=== PATIENT | female | born 2000 | race Caucasian/White ===

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

== ENCOUNTER 2021-04-01 13:51 | Outpatient (CLI) | payer OTHER ==
[2021-04-01 14:43] VITALS: BP 132/75; PULSE 85; RESP 18; TEMP 97.6
--- NOTE | 2021-04-05 07:26 | P.MSEPDOC ---
Presenting Problems - Arrival Data Date of Arrival on Unit: 04/01/21 Time of Arrival on Unit: 13:51 Mode of Transport: Ambulatory - Complaint OB-Reason for Admission/Chief Complaint: Decreased Movement Medical History - Information : 1 Para: 0 Term: 0 : 0 Abortions: Spontaneous or Elective: 0 Number of Living Children: 0 - Gestational Age Gestational Age by RICO (wks/days): 36 Weeks and 3 Days Review of Systems - Review of Systems Constitutional: No problems Breast: No problems ENT: No problems Cardiovascular: No problems Respiratory: No problems Gastrointestinal: No problems Genitourinary: No problems Musculoskeletal: No problems Neurological: No problems Skin: No problems Vital Signs - Temperature Temperature: 97.6 F Temperature Source: Oral - Pulse Pulse Oximetery Pulse Rate: 85 Pulse Assessment Method: Pulse Oximetry - Respirations Respiratory Rate: 18 Oxygen Delivery Method: Room Air O2 Sat by Pulse Oximetry: 100 - Blood Pressure Right Arm Blood Pressure: 132/75 Blood Pressure Mean: 94 Blood Pressure Source: Automatic Cuff Medical Screen Scoring - Assessment - Baby A Baseline FHR: 135 Heart Rate - NICHD Category: Category I (Normal) NST: Reactive Physician Notification - Physician Notified Physician Notified Date: 04/01/21 Physician Notified Time: 14:27 Physician: Margo Luna New Order Received: Yes - Notification Comment Comment: Dr. Luna called, report given on maternal and status, complaints of. decreased movement x3 days. NST is reactive and pt is feeling movement at this time. Vitals WNL and pt has no other complaints. Orders to discharge pt home. Maternal Triage Index - Maternal Triage Index Presenting for scheduled procedure w/no complaint: No - Stat/Priority 1 Stat Priority 1: No - Urgent/Priority 2 Urgent Priority 2: Yes Provider Notified: Margo Luna Provider Notified Time: 14:27 Criteria Met for Priority 2: 36 3/7 weeks, c/o decreased movement x3days Disposition - Disposition OB Disposition: Discharge to home Discharge Date: 04/01/21 Discharge Time: 14:30 I agree with the RN Medical Screening Exam: Yes Case reviewed; plan agreed upon as documented in EMR&OBIX.: Yes Diagnosis: DECREASED MOVEMENTS, THIRD TRIMESTER, FETUS 1
== END 2021-04-01 14:30 | disposition home or self-care (01) ==
LOC: FBPOP 13:51
PROVIDERS: ATTEND Obstetrics & Gynecology
DX: O36.8130 Decreased fetal movements, third trimester, not applicable or unspecified (principal); Z3A.36 36 weeks gestation of pregnancy
CPT/HCPCS: 59025; G0463; 99213

== ENCOUNTER 2021-04-29 05:55 | Inpatient (IN) | payer OTHER ==
--- NOTE | 2021-04-28 20:32 | P.HPOB ---
History of Present Illness H&P Date: 04/28/21 Chief Complaint: Induction of labor This is a 20 y.o. female, 1, para 0, with an estimated date of confinement of 04/26/2021, estimated gestational age of 40-3/7 weeks, who presents for induction of labor due to postdates. She complains of irregular contractions and pressure. course has been essentially uncomplicated. labs: GC/chlamydia/Trich-neg Hepatitis B surface antigen-neg RPR-NR Rubella-immune Blood type-A neg Antibody screen-neg HIV-NR Hemoglobin-12.4 Toxoplasma-neg Random glucose-83 Quad-neg 1 hr. GTT-118 Rhogam given at 28 weeks GBS-neg OB Hx: Housekeeper Supervisor Hx: No hx STDs Social Hx: Single. Review of Systems Constitutional: Denies chills, Denies fever Eyes: denies blurred vision, denies pain Ears, nose, mouth and throat: Denies headache, Denies sore throat Cardiovascular: Denies chest pain, Denies shortness of breath Respiratory: Denies cough Gastrointestinal: Reports abdominal pain (irregular contractions) Genitourinary: Reports pelvic pain, Reports Musculoskeletal: Reports low back pain Integumentary: Denies pruritus, Denies rash Neurological: Denies numbness, Denies weakness Psychiatric: Denies anxiety, Denies depression Past Medical History Past Medical History: No Reported History History of Any Multi-Drug Resistant Organisms: None Reported Past Surgical History: No Surgical Hx Reported Past Psychological History: No Psychological Hx Reported Smoking Status: Vaper (Prior to preg.) Past Alcohol Use History: None Reported Past Drug Use History: None Reported - Past Family History Brother(s) Family Medical History: Cancer (lymphoma) Medications and Allergies Home Medications Medication Instructions Recorded Confirmed Type Pnv,Calcium 72/Iron/Folic Acid 1 each PO 04/28/21 History [ Plus Tablet] Allergies Allergy/AdvReac Type Severity Reaction Status Date / Time No Known Allergies Allergy Verified 04/01/21 13:56 Exam Osteopathic Statement: *. No significant issues noted on an osteopathic structural exam other than those noted in the History and Physical/Consult. HEENT: within normal limits Heart: regular rate and rhythm Lungs: clear to auscultation bilaterally Abdomen: , non-tender Cervix: 1 cm/70%/-2 heart tones: 150's by doppler Extremities: neg. Salvador's Assessment and Plan (1) 40 weeks gestation of Status: Acute Code(s): Z3A.40 - 40 WEEKS GESTATION OF SNOMED Code(s): 51401803 Plan: Proceed with oxytocin induction of labor. Expectant management. Epidural anesthesia if desired.
[2021-04-29] MEDS ORDERED: LIDOCAINE 1% (10MG/ML) FOR IV START INTRADERMA PRN (05:57)
[2021-04-29] MEDS ORDERED: CARBOPROST TROMETHAMINE 250 MCG/ML 1 ML AMP IM PRN (05:57)
[2021-04-29] MEDS ORDERED: TERBUTALINE 1 MG/ML VIAL SQ PRN (05:57)
[2021-04-29] MEDS ORDERED: OXYTOCIN 10 UNIT/ML 1 ML VIAL IM PRN (05:57)
[2021-04-29] MEDS ORDERED: METHYLERGONOVINE 0.2 MG/ML 1 ML AMP IM PRN (05:57)
[2021-04-29] MEDS ORDERED: LIDOCAINE 1% (PF) 10 MG/ML (30 ML SDV) SQ PRN (05:57)
[2021-04-29] MEDS ORDERED: OXYTOCIN 30 UNITS/500 ML NS 30 UNIT in SALINE 1 500ML.BAG IV SCH ×2 (05:57→22:30)
[2021-04-29] MEDS: LACTATED RINGERS 1,000 ML IV SCH ×2 (06:15→12:57)
[2021-04-29 06:41] LABS: Basophils % (A) 0 %; Eosinophils # (A) 0.1 k/uL (0-0.7); Eosinophils % (A) 1 %; HCT 32.5 % (34.0-46.0); HGB 10.3 gm/dL (11.4-16.0); Hypochromasia Slight; Lymphocytes % (A) 26 %; MCHC 31.7 g/dL (31.0-37.0); MCV 88.4 fL (80.0-100.0); Mean Platelet Volume 12.3; Monocytes # (A) 0.4 k/uL (0-1.0); Monocytes % (A) 6 %; Neutrophils # (A) 4.9 k/uL (1.3-7.7); Neutrophils % (A) 64 %; RBC 3.68 m/uL (3.80-5.40); RDW 14.7 % (11.5-15.5); WBC 7.6 k/uL (4.0-11.0)
[2021-04-29 07:30] LABS: Platelet Count 216 k/uL (150-450)
[2021-04-29 07:31] LABS: Large Platelets Present
[2021-04-29] MEDS ORDERED: BUTORPHANOL 1 MG/ML 1 ML VIAL IV PRN (12:44)
[2021-04-29] MEDS ORDERED: SODIUM CHLORIDE 0.9% 100 ML BAG ONE (14:58)
[2021-04-29] MEDS ORDERED: ROPIVACAINE 5MG/ML 20ML VIAL ONE (14:58)
[2021-04-29] MEDS ORDERED: fentaNYL (PF) 50 MCG/ML 5 ML AMP ONE (14:58)
--- NOTE | 2021-04-29 22:22 | P.PROBDLV ---
Vaginal Delivery Note - . Vaginal Delivery Note: The patient progressed to complete dilation after oxytocin induction of labor and artificial rupture membranes with thin meconium noted. She did receive epidural anesthesia during labor. Once reaching complete dilation, she began pushing. 's head came to a crown. With one further push, the infant's head delivered across the perineum followed by the anterior shoulder. Nose and mouth were bulb suctioned. With one remaining push, the remainder the infant ea sily delivered and was placed on mother's abdomen. Cord was allowed to finish pulsating and then the cord was clamped and cut. was taken to warmer for evaluation. A viable female infant was noted with scores of 9 at 1 minute and 9 at 5 minutes and weight of 7 lbs. 3 oz. Placenta delivered shortly thereafter, intact, with a three-vessel cord. Uterus initially contracted well after oxytocin was given and uterine massage was carried out. There were several gushes of blood clots. A gloved hand was placed within the endometrial cavity and a small amount of membrane was removed along with several clots. Uterus did firm up fairly well after this. Inspection of the perineum revealed a second-degree perineal laceration. This area was anesthetized with 1% lidocaine and then sutured with 3-0 and 2-0 Vicryl suture in the usual multilayer fashion. Estimated blood loss is approximately 300 mL's. Mother and infant are in stable condition.
[2021-04-29] MEDS ORDERED: diphenhydrAMINE 50 MG/ML 1 ML VIAL IVP PRN ×2 (22:25)
[2021-04-29] MEDS ORDERED: BENZOCAINE/MENTHOL SPRAY 1 GM/SPRAY AEROSOL TOPICAL PRN (22:25)
[2021-04-29] MEDS ORDERED: SIMETHICONE 80 MG CHEWABLE PO PRN (22:25)
[2021-04-29] MEDS ORDERED: ZOLPIDEM 5 MG TAB PO PRN (22:25)
[2021-04-29] MEDS ORDERED: diphenhydrAMINE 50 MG CAP PO PRN (22:25)
[2021-04-29] MEDS ORDERED: diphenhydrAMINE 25 MG CAP PO PRN (22:25)
[2021-04-29] MEDS ORDERED: LANOLIN CREAM 5 GM TUBE TOPICAL PRN (22:25)
[2021-04-29] MEDS ORDERED: HYDROCORTISONE 2.5% RECTAL CREAM 30 GM TUBE RECTAL PRN (22:25)
[2021-04-29] MEDS ORDERED: PRENATAL VIT-IRON-FOLIC ACID 1 EACH CAP PO SCH (22:30)
[2021-04-29 22:44] VITALS: RESP 16
[2021-04-29] MEDS: IBUPROFEN 600 MG TAB PO PRN (22:58)
[2021-04-30] MEDS: ACETAMINOPHEN TAB 325 MG TAB PO PRN ×2 (04:21→15:27)
[2021-04-30] MEDS ORDERED: SENNOSIDES-DOCUSATE SODIUM 1 EACH TAB PO SCH (08:00)
[2021-04-30] MEDS: IBUPROFEN 600 MG TAB PO PRN ×2 (08:33→22:36)
[2021-04-30] MEDS ORDERED: Rhogam IMMUNE GLOBULIN 1,500 UNIT/1 ML IM ONE (10:06)
[2021-04-30 10:15] LABS: Basophils % (A) 0 %; Eosinophils % (A) 0 %; HCT 27.2 % (34.0-46.0); HGB 8.9 gm/dL (11.4-16.0); Hypochromasia Slight; Lymphocytes # (A) 1.8 k/uL (1.0-4.8); Lymphocytes % (A) 13 %; MCH 29.1 pg (25.0-35.0); MCHC 32.8 g/dL (31.0-37.0); MCV 88.7 fL (80.0-100.0); Mean Platelet Volume 12.9; Monocytes # (A) 0.7 k/uL (0-1.0); Monocytes % (A) 5 %; Neutrophils # (A) 11.7 k/uL (1.3-7.7); Neutrophils % (A) 81 %; Platelet Count 206 k/uL (150-450); RBC 3.06 m/uL (3.80-5.40); RDW 14.8 % (11.5-15.5); WBC 14.4 k/uL (4.0-11.0)
[2021-04-30 11:25] LABS: Large Platelets Present
--- NOTE | 2021-04-30 13:47 | P.DS ---
Providers Date of admission: 04/29/21 05:55 Expected date of discharge: 04/30/21 Attending physician: Charlene Dalal Primary care physician: Stated None - Discharge Diagnosis(es) (1) 40 weeks gestation of Current Visit: No Status: Acute Hospital Course: This is a 20-year-old female 1 para 0 at 40-3/7 weeks who presented for induction of labor. She underwent oxytocin induction of labor and delivered vaginally a viable female on 04/29/2021 with scores of 9 at 1 minute and 9 at 5 minutes and weight of 7 lbs. 3 oz. Her course has been uncomplicated. She is bottle feeding. Lochia is decreasing. Her pain is well-controlled. Vital signs are stable. Abdomen is soft with fundus firm and nontender. Extremities show negative Homans. Impression is status post vaginal delivery day #1. Plan is to discharge home today. She is given routine instructions. She is advised to follow up in the office in 6 weeks for check. She has a breast pump at home and plans to pump her breast milk and then feed in the bottle. She is instructed to continue taking her vitamins and she should add an iron supplement due to anemia. She is advised to call the office if she has any further questions or concerns prior to her appointment time. Procedures: Oxytocin induction of labor Spontaneous vaginal delivery of a viable female on 04/29/2021 Patient Condition at Discharge: Stable Plan - Discharge Summary New Discharge Prescriptions: No Action Pnv,Calcium 72/Iron/Folic Acid [ Plus Tablet] 1 each PO ONCE Discharge Medication List Pnv,Calcium 72/Iron/Folic Acid [ Plus Tablet] 1 each PO ONCE 04/28/21 [History] Follow up Appointment(s)/Referral(s): Charlene Dalal DO [Doctor of Osteopathic Medicine] - 06/10/21 11:30 am
[2021-04-30 22:22] VITALS: BP 120/74; PULSE 90; TEMP 98.8
== END 2021-04-30 23:20 | disposition home or self-care (01) | DRG 807 ==
LOC: 4FBP 05:55
PROVIDERS: ADMIT Obstetrics & Gynecology; ATTEND Obstetrics & Gynecology
PROC: 10E0XZZ Delivery of Products of Conception, External Approach (ICD-10-PCS; principal; 2021-04-29)
PROC: 0KQM0ZZ Repair Perineum Muscle, Open Approach (ICD-10-PCS; 2021-04-29)
PROC: 10907ZC Drainage of Amniotic Fluid, Therapeutic from Products of Conception, Via Natural or Artificial Opening (ICD-10-PCS; 2021-04-29)
PROC: 3E033VJ Introduction of Other Hormone into Peripheral Vein, Percutaneous Approach (ICD-10-PCS; 2021-04-29)
DX: O48.0 Post-term pregnancy (principal); O70.1 Second degree perineal laceration during delivery; O77.0 Labor and delivery complicated by meconium in amniotic fluid; O90.81 Anemia of the puerperium; Z37.0 Single live birth; D64.9 Anemia, unspecified; Z3A.40 40 weeks gestation of pregnancy
CPT/HCPCS: 85025; 85461; 86850; 86900; 86901

== ENCOUNTER → 2023-02-12 | Outpatient (CLI) | payer OTHER ==
--- NOTE | 2023-02-12 13:15 | US ---
EXAMINATION TYPE: US pelvic complete DATE OF EXAM: 02/12/2023 COMPARISON: 2018 CLINICAL INDICATION: Female, 22 years old with history of N94.10 DYSPAREUNIA; TECHNIQUE: Transabdominal (TA). Transabdominal sonographic images of the pelvis were acquired. Date of LMP: Feb 02, 2023 EXAM MEASUREMENTS: Uterus: 7.7 x 3.5 x 5.3 cm Endometrial Stripe: 0.31 cm Right Ovary: 4.1 x 3.1 x 2.7 cm Left Ovary: 3.3 x 2.3 x 3.3 cm 1. Uterus: Retroverted Appears wnl 2. Endometrium: wnl 3. Right Ovary: Multiple follicles noted 4. Left Ovary: Multiple follicles noted 5. Bilateral Adnexa: wnl 6. Posterior cul-de-sac: wnl IMPRESSION: No significant abnormality appreciated at this time.
== END | disposition home or self-care (01) ==
LOC: RADUSWWP 12:07
PROVIDERS: ATTEND Obstetrics & Gynecology
DX: N94.10 Unspecified dyspareunia (principal); R10.2 Pelvic and perineal pain
CPT/HCPCS: 76856

== ENCOUNTER 2024-04-14 05:48 | Inpatient (IN) | payer OTHER ==
[2024-04-14] MEDS ORDERED: TRANEXAMIC 1,000 MG/100ML-NACL 1,000 MG in EMPTY BAG 1 BAG IV PRN (06:04)
[2024-04-14] MEDS ORDERED: OXYTOCIN 10 UNIT/ML 1 ML VIAL IM PRN (06:04)
[2024-04-14] MEDS ORDERED: METHYLERGONOVINE 0.2 MG/ML 1 ML AMP IM PRN (06:04)
[2024-04-14] MEDS ORDERED: miSOPROStoL 200 MCG TAB RECTAL PRN (06:04)
[2024-04-14] MEDS ORDERED: TERBUTALINE 1 MG/ML VIAL SQ PRN (06:04)
[2024-04-14] MEDS ORDERED: miSOPROStoL 200 MCG TAB PO PRN (06:04)
[2024-04-14] MEDS ORDERED: CARBOPROST TROMETHAMINE 250 MCG/ML 1 ML AMP IM PRN (06:04)
[2024-04-14] MEDS: OXYTOCIN 30 UNITS/500 ML NS 30 UNIT in SALINE 1 500ML.BAG IV SCH (06:24)
[2024-04-14 06:26] LABS: Basophils % (A) 0 %; Eosinophils # (A) 0.1 k/uL (0-0.7); Eosinophils % (A) 1 %; HCT 28.8 % (34.0-46.0); HGB 9.5 gm/dL (11.4-16.0); Hypochromasia Slight; Lymphocytes # (A) 2.2 k/uL (1.0-4.8); Lymphocytes % (A) 26 %; MCH 27.3 pg (25.0-35.0); MCHC 32.9 g/dL (31.0-37.0); Mean Platelet Volume 10.4; Monocytes # (A) 0.4 k/uL (0-1.0); Monocytes % (A) 5 %; Neutrophils # (A) 5.6 k/uL (1.3-7.7); Neutrophils % (A) 65 %; Platelet Count 230 k/uL (150-450); RBC 3.47 m/uL (3.80-5.40); RDW 15.2 % (11.5-15.5); WBC 8.6 k/uL (3.8-10.6)
[2024-04-14] MEDS ORDERED: LACTATED RINGERS 500 ML IV SCH (06:31)
[2024-04-14] MEDS: LACTATED RINGERS 500 ML IV SCH (06:50)
[2024-04-14] MEDS: LACTATED RINGERS 1,000 ML IV SCH (07:43)
--- NOTE | 2024-04-14 09:10 | P.HPOB ---
History of Present Illness H&P Date: 04/14/24 Chief Complaint: induction of labor 23 year old presents at 39 weeks for induction of labor. Her cervix is 2/70/-2 and she is [place] irregularly. heart tones 135 with moderate variability and reactive. Review of Systems All systems: negative Constitutional: Denies chills, Denies fever Eyes: denies blurred vision, denies pain Ears, nose, mouth and throat: Denies headache, Denies sore throat Cardiovascular: Denies chest pain, Denies shortness of breath Respiratory: Denies cough Gastrointestinal: Denies abdominal pain, Denies diarrhea, Denies nausea, Denies vomiting Genitourinary: Denies dysuria, Denies hematuria Musculoskeletal: Denies myalgias Integumentary: Denies pruritus, Denies rash Neurological: Denies numbness, Denies weakness Psychiatric: Denies anxiety, Denies depression Endocrine: Denies fatigue, Denies weight change Past Medical History Past Medical History: No Reported History History of Any Multi-Drug Resistant Organisms: None Reported Past Surgical History: No Surgical Hx Reported Additional Past Surgical History / Comment(s): wisdom teeth Past Anesthesia/Blood Transfusion Reactions: No Reported Reaction Past Psychological History: Anxiety, Depression Smoking Status: Never smoker Past Alcohol Use History: None Reported Past Drug Use History: None Reported - Past Family History Brother(s) Family Medical History: Cancer Medications and Allergies Home Medications Medication Instructions Recorded Confirmed Type Vit No.180/Iron/Folic 1 each PO ONCE 04/28/21 04/14/24 History [ Plus Vitamin-Mineral] Allergies Allergy/AdvReac Type Severity Reaction Status Date / Time No Known Allergies Allergy Verified 04/29/21 05:57 Exam Osteopathic Statement: *. No significant issues noted on an osteopathic structural exam other than those noted in the History and Physical/Consult. Vital Signs Temp Pulse Resp BP Pulse Ox 04/14/24 06:03 98.3 F 104 H 16 118/69 98 Intake and Output 04/13/24 04/14/24 04/14/24 22:59 06:59 14:59 Other: Weight 74.389 kg Heart: Regular rate and rhythm Lungs: Clear to auscultation bilaterally Abdomen: Soft, nontender Extremities: Negative Homans sign Results Result Diagrams: 04/14/24 06:10 Abnormal Lab Results - Last 24 Hours (Table) 04/14/24 Range/Units 06:10 RBC 3.47 L (3.80-5.40) m/uL Hgb 9.5 L (11.4-16.0) gm/dL Hct 28.8 L (34.0-46.0) % Assessment and Plan (1) Elective induction of labor planned Current Visit: Yes Status: Acute Code(s): [id number] - SNOMED Code(s): 019021485 Plan: 1. induction of labor with amniotomy and pitocin 2. anticipate normal vaginal delivery
[2024-04-14] MEDS ORDERED: fentaNYL (PF) 50 MCG/ML 5 ML AMP ONE (10:23)
[2024-04-14] MEDS ORDERED: ROPIVACAINE 5 MG/ML 30 ML VIAL ONE (10:23)
[2024-04-14] MEDS ORDERED: SODIUM CHLORIDE 0.9% 250 ML BAG ONE (10:23)
[2024-04-14] MEDS ORDERED: ZOLPIDEM 5 MG TAB PO PRN (14:25)
[2024-04-14] MEDS ORDERED: ACETAMINOPHEN TAB 500 MG TAB PO PRN (14:25)
[2024-04-14] MEDS ORDERED: diphenhydrAMINE 50 MG/ML 1 ML VIAL IVP PRN ×2 (14:25)
[2024-04-14] MEDS ORDERED: SIMETHICONE 80 MG CHEWABLE PO PRN (14:25)
[2024-04-14] MEDS ORDERED: diphenhydrAMINE 25 MG CAP PO PRN (14:25)
[2024-04-14] MEDS ORDERED: diphenhydrAMINE 50 MG CAP PO PRN (14:25)
[2024-04-14] MEDS ORDERED: HYDROCORTISONE 2.5% RECTAL CREAM 30 GM TUBE RECTAL PRN (14:25)
[2024-04-14] MEDS ORDERED: LANOLIN CREAM 1 GM TUBE TOPICAL PRN (14:25)
[2024-04-14] MEDS: LIDOCAINE 0.5% (PF) 5 MG/ML (50 ML SDV) SQ PRN (15:07)
[2024-04-14] MEDS: BENZOCAINE/MENTHOL SPRAY 1 GM/SPRAY AEROSOL TOPICAL PRN (15:08)
[2024-04-14] MEDS: IBUPROFEN 800 MG TAB PO SCH (15:44)
[2024-04-14] MEDS: Rhogam IMMUNE GLOBULIN 1,500 UNIT/1 ML IM ONE (17:30)
[2024-04-14 20:20] VITALS: RESP 16
[2024-04-14] MEDS: SENNOSIDES-DOCUSATE SODIUM 1 EACH TAB PO SCH (20:21)
[2024-04-15 06:15] LABS: Basophils % (A) 0 %; Eosinophils # (A) 0.1 k/uL (0-0.7); Eosinophils % (A) 1 %; HCT 29.8 % (34.0-46.0); HGB 9.6 gm/dL (11.4-16.0); Hypochromasia Moderate; Lymphocytes # (A) 2.1 k/uL (1.0-4.8); Lymphocytes % (A) 22 %; MCH 27.2 pg (25.0-35.0); MCHC 32.4 g/dL (31.0-37.0); MCV 83.9 fL (80.0-100.0); Mean Platelet Volume 11.9; Monocytes # (A) 0.5 k/uL (0-1.0); Monocytes % (A) 5 %; Neutrophils # (A) 6.9 k/uL (1.3-7.7); Neutrophils % (A) 70 %; Platelet Count 221 k/uL (150-450); RBC 3.55 m/uL (3.80-5.40); RDW 15.3 % (11.5-15.5); WBC 9.8 k/uL (3.8-10.6)
--- NOTE | 2024-04-15 07:51 | P.PROBDLV ---
Vaginal Delivery Note - . Vaginal Delivery Note: 23 year old presents at 39 weeks for induction of labor. Her cervix is 2/70/-2 and she is [place] irregularly. heart tones 135 with moderate variability and reactive. Pitocin was started and amniotomy performed at 7:20 AM, clear fluid noted. The Pitocin was increased per protocol when she was uncomfortable she did get an epidural. Her cervix was completely dilated at 1339. She pushed, delivered a viable female over intact perineum under epidural incision at 1349. Head delivered OA, anterior shoulder delivered gentle downward guidance following posterior shoulder and rest of body. Nose and mouth bulb suctioned, clear, placed on mother's abdomen. Apgars 9, 9, weight 7 pounds 10 ounces. Placenta delivered spontaneously, intact with three-vessel cord at 1351. Vagina, cervix, perineum inspected. First-degree midline laceration was repaired with 3-0 Vicryl. Estimated blood loss 150 mL. Mother and baby in stable condition.
--- NOTE | 2024-04-15 07:52 | P.DS ---
Providers Date of admission: 04/14/24 05:48 Expected date of discharge: 04/15/24 Attending physician: Margo Luna Primary care physician: [facility] - Discharge Diagnosis(es) (1) Elective induction of labor planned Current Visit: Yes Status: Resolved (2) Status post normal vaginal delivery Current Visit: Yes Status: Acute Hospital Course: Patient presented For induction of labor. She underwent a normal vaginal delivery. course has been uneventful. She denies nausea, vomiting, chest pain, shortness of breath or calf pain. Patient will be discharged home day #1 stable condition to follow-up with me in 6 weeks. Plan - Discharge Summary New Discharge Prescriptions: New Ibuprofen [Motrin] 800 mg PO Q8HR #30 tab No Action Vit No.180/Iron/Folic [ Plus Vitamin-Mineral] 1 each PO ONCE Discharge Medication List Vit No.180/Iron/Folic [ Plus Vitamin-Mineral] 1 each PO ONCE 04/28/21 [History] Ibuprofen [Motrin] 800 mg PO Q8HR #30 tab 04/15/24 [Rx] Follow up Appointment(s)/Referral(s): Margo Luna DO [Doctor of Osteopathic Medicine] - 05/27/24 11:30 am Discharge Disposition: HOME SELF-CARE
[2024-04-15 16:07] VITALS: BP 125/74; PULSE 88; TEMP 98.6
== END 2024-04-15 18:12 | disposition home or self-care (01) | DRG 560 ==
LOC: 4FBP 05:48
PROVIDERS: ADMIT Obstetrics & Gynecology; ATTEND Obstetrics & Gynecology
PROC: 10E0XZZ Delivery of Products of Conception, External Approach (ICD-10-PCS; principal; 2024-04-14)
PROC: 0HQ9XZZ Repair Perineum Skin, External Approach (ICD-10-PCS; 2024-04-14)
PROC: 10907ZC Drainage of Amniotic Fluid, Therapeutic from Products of Conception, Via Natural or Artificial Opening (ICD-10-PCS; 2024-04-14)
PROC: 3E033VJ Introduction of Other Hormone into Peripheral Vein, Percutaneous Approach (ICD-10-PCS; 2024-04-14)
DX: O99.344 Other mental disorders complicating childbirth (principal); F32.A Depression, unspecified; F41.9 Anxiety disorder, unspecified; O70.0 First degree perineal laceration during delivery; Z37.0 Single live birth; Z3A.39 39 weeks gestation of pregnancy
CPT/HCPCS: 85025; 85461; 86850; 86900; 86901